=== PATIENT | male | born 1935 | race Caucasian/White ===

== ENCOUNTER 2023-09-05 08:02 | Outpatient (RCR) | payer OTHER, SELFPAY | END 2023-09-05 23:59 | disposition home or self-care (01) | LOC: RPT 08:02 | PROVIDERS: ATTENDING PHYSICIAN Internal Medicine; FAMILY PHYSICIAN Internal Medicine | DX: M54.2 Cervicalgia (principal); M50.30 Other cervical disc degeneration, unspecified cervical region; Z73.6 Limitation of activities due to disability | CPT/HCPCS: 97110; 97140; 97161 ==

== ENCOUNTER 2023-10-04 10:32 | Outpatient (RCR) | payer OTHER, SELFPAY | END 2023-10-04 23:59 | disposition home or self-care (01) | LOC: RPT 10:32 | PROVIDERS: ATTENDING PHYSICIAN Internal Medicine; FAMILY PHYSICIAN Internal Medicine | DX: M54.2 Cervicalgia (principal); M50.30 Other cervical disc degeneration, unspecified cervical region; Z73.6 Limitation of activities due to disability | CPT/HCPCS: 97010; 97110; 97140 ==

== ENCOUNTER 2023-10-29 15:14 | Outpatient (RCR) | payer OTHER, SELFPAY | END 2023-10-29 23:59 | disposition home or self-care (01) | LOC: RPT 15:14 | PROVIDERS: ATTENDING PHYSICIAN Internal Medicine; FAMILY PHYSICIAN Internal Medicine | DX: M54.2 Cervicalgia (principal); M50.30 Other cervical disc degeneration, unspecified cervical region; Z73.6 Limitation of activities due to disability | CPT/HCPCS: 97010; 97110; 97140 ==

== ENCOUNTER 2023-11-15 10:05 | Outpatient (RCR) | payer OTHER, SELFPAY | END 2023-12-03 07:56 | disposition home or self-care (01) | LOC: RPT 10:05 | PROVIDERS: ATTENDING PHYSICIAN Internal Medicine; FAMILY PHYSICIAN Internal Medicine | DX: M54.2 Cervicalgia (principal); M50.30 Other cervical disc degeneration, unspecified cervical region; Z73.6 Limitation of activities due to disability | CPT/HCPCS: 97110; 97140 ==

== ENCOUNTER → 2024-03-26 10:20 | Outpatient (REF) | payer OTHER, SELFPAY | LOC: RAD 10:20 | PROVIDERS: ATTENDING PHYSICIAN Physician Assistant Medical; FAMILY PHYSICIAN Internal Medicine | DX: J45.41 Moderate persistent asthma with (acute) exacerbation (principal); R05.1 Acute cough | CPT/HCPCS: 71046 ==